=== PATIENT | male | born 1935 | race Caucasian/White ===

== ENCOUNTER 2017-03-28 14:55 | Emergency (ER) | payer OTHER ==
[2017-03-28 15:00] VITALS: BP 133/74; PULSE 86; RESP 16; TEMP 98.2; O2SAT 94
--- NOTE | 2017-03-28 16:01 | EDPHY ---
H & P Time Seen by Provider: 03/28/17 15:49 HPI/ROS: CHIEF COMPLAINT: Lesion behind ear. HISTORY OF PRESENT ILLNESS: The patient is an 82-year-old male who presents with a lesion behind his right ear. 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 He states it was 1.5mm 3 days ago and this morning it enlarged to 3mm. The patient has had cysts behind his ear in the past and has also had squamous cell carcinoma removed. He tried applying alcohol to the lesion and states some blood was drained. The patient is concerned that the lesion has grown so rapidly that it is squamous cell carcinoma. REVIEW OF SYSTEMS: A comprehensive 10 point review of systems is otherwise negative aside from elements mentioned in the history of present illness. Past Medical/Surgical History: Denies. Social History: . Lives with his at home. Smoking Status: Never smoked Physical Exam: General Appearance: Alert, pleasant Eyes: Pupils equal and round, no conjunctival pallor or injection ENT, Mouth: Mucous membranes moist. Ear: Behind right ear there is an area 3mm in lenght that is firm, nontender, no fluctuance, no erythema. Neurological: A&O, nonfocal, normal gait Skin: Warm and dry, no rash Extremities: Appear normal. Psychiatric: Mood and affect normal Constitutional: Initial Vital Signs Temperature (C) 36.8 C 03/28/17 14:59 Heart Rate 86 03/28/17 14:59 Respiratory Rate 16 03/28/17 14:59 Blood Pressure 133/74 H 03/28/17 14:59 O2 Sat (%) 94 03/28/17 14:59 O2 Delivery Mode Room Air Allergies/Adverse Reactions: No Known Allergies Allergy (Unverified 03/28/17 14:59) Home Medications: Medication Instructions Recorded NK [No Known Home Meds] 03/28/17 Medical Decision Making ED Course/Re-evaluation: I evaluated the patient. He has a 3mm lesion behind his right ear. It is nontender, there is no erythema or fluctuance. No indication for abx or drainage. Patient was instructed to followup with his parking lot attendant and cashier tomorrow. Departure - Departure Disposition: Home, Routine, Self-Care Clinical Impression: Cyst Condition: Good Instructions: Cyst (ED) Additional Instructions: Apply warm compresses to the area. Avoid touching the area as much as possible. Followup with your parking lot attendant and cashier tomorrow for further evaluation. Referrals: Dony Coreas MD [Primary Care Provider] - As per Instructions [facility] [Outside] - As per Instructions Report Scribed for: Elizabeth Staley Report Scribed by: Darlene Pacheco Date of Report: 03/28/17 Time of Report: 16:04 Physician Review and Approval Statement: 03/28/17 16:04 Portions of this note were transcribed by a medical research scientist. I personally performed the history, physical exam, and medical decision-making; and confirmed the accuracy of the information in the transcribed note.
== END 2017-03-28 16:11 | disposition home or self-care (01) ==
DX: L98.9 Disorder of the skin and subcutaneous tissue, unspecified (principal)